=== PATIENT | male | born 1945 | race Caucasian/White ===

== ENCOUNTER 2017-03-24 06:53 | Observation (INO) | payer MEDICARE, BC ==
[~2017-03-24] VITALS: Ht 180.3 cm; Wt 124.2 kg
--- NOTE | ~2017-03-24 | OR ---
PATIENT'S NAME: IVONNE DURAN [facility] AGE: 71 Y [address] ROOM: [address] [address] LOCATION: [facility] ADMIT DATE: 03/24/2017 OR/Procedure Report DISCHARGE DATE: 03/25/2017 FAMILY PHYSICIAN: Joe Casanova MD ATTENDING PHYSICIAN: Gretel Watts SURGEON: Gretel Watts MD REPORTING ANALYST: Sharon Mackenzie RN. DATE OF PROCEDURE: 03/24/2017 PREOPERATIVE DIAGNOSIS: Lumbar spinal stenosis. POSTOPERATIVE DIAGNOSIS: Lumbar spinal stenosis. PROCEDURES PERFORMED: 1. Bilateral laminectomy with decompression of neural elements and foraminotomy and right side diskectomy at L3-4. 2. Bilateral laminectomy with decompression of neural elements, foraminotomy, and diskectomy on the left side at L4-5. ANESTHESIA: General. ANESTHESIA PROVIDER: Tim Gonzales CRNA. HISTORY: This patient is a 71-year-old gentleman who presented with back pain, difficulty standing, and weakness in his upper thighs. He was not using a walker to get around. Imaging studies showed spinal stenosis at L3-4 and L4- 5, partly as a result of a focal disc herniation on the right side at L3-4. With the severity of the patient's symptoms and the MRI findings, surgery was recommended. The above procedures, benefits, and risks were discussed with the patient. With his consent, he was brought to the operating room for surgery. PROCEDURE IN DETAIL: In the operating room, the patient was placed in a supine position. Anesthesia was induced. He was intubated. The patient was then rolled to a prone position on a Bernabe table, taking care to protect all the pressure points. The incision line was marked out in the midline of his lower back and the whole area was prepped and draped in a sterile fashion. Local anesthesia was infiltrated. The #10 blade was used to open the incision and deepen it to the fascial layer. The fascia was then opened and the tips of the spinous processes at L3, 4, 5, and S1 were identified. The paraspinous muscles were dissected off the spinous processes and laminae bilaterally at L3, 4, 5, and S1. The self-retaining retractors were adjusted. Intraoperative x-ray was obtained to verify that we were at the desired levels. Laminectomy was then carried out at L3, 4, and 5. The Laminae were drilled down bilaterally on both sides at these levels using the high-speed drill. The PATIENT'S NAME: IVONNE DURAN [facility] AGE: 71 Y [address] ROOM: [address] [address] LOCATION: [facility] ADMIT DATE: 03/24/2017 OR/Procedure Report DISCHARGE DATE: 03/25/2017 FAMILY PHYSICIAN: Joe Casanova MD ATTENDING PHYSICIAN: Gretel Watts medial facet was also drilled down. The [place] was then used to remove the laminae and spinous processes until the central canal was decompressed. The stenosis was particularly significant at L4-5. The [place] was used to separate the dura from the undersurface of the laminae and also separate the ligamentum flavum in some places. The [place] rongeur was then used to complete the central canal decompression as well as the lateral recesses. The microscope was brought in at this point, and under microscopic vision, the disk spaces were identified and foraminotomies were carried out bilaterally at L3-4 and L4-5. There was a lateral disk herniation at L3-4 which was occupying the foramen and compressing the L3 nerve roots. The disk was incised and pituitary rongeur was used to pull out disk material and decompression continued until that nerve root was completely decompressed. Some of our disc was also pressing on the right L4 nerve roots and foraminotomy was carried out for this nerve root as well. On the left side, the L4-5 disk was protruding and compressing the nerve roots. Diskectomy was also carried out on the left at L4-5. At the end of the procedure both central canal and neural foramina had been satisfactory decompressed. Hemostasis was then achieved using fibrillar and cottonoids. The edges of the laminectomy were also waxed thoroughly. When the bleeding stopped, the irrigation was used to wash out all the debris. Final hemostasis check was carried out. The retractors were then removed and the incision was closed with appropriate suture materials. Sterile dressing was applied. The patient was rolled back to a supine position. His anesthesia was reversed. He was extubated and taken to the recovery room to complete his recovery. I was present at and performed every aspect of this procedure, assisted at different stages by operating room nurses. There were no apparent intraoperative complications. Swabs, needles, and instruments were all accounted for the end of the case. Estimated blood loss was less than 500 mL and there was no reason for blood transfusion. I expect the patient to benefit from this procedure. MD JOANNA TATUM/robbl /[id number] CC: Joe Casanova MD d: 03/26/17 1650 t: 03/28/17 1246, OPERATIVE SUMMARY
[~2017-03-24 06:53] MED LIST: AMOXICILLIN500 M1 PO; CPAP INH; IMDUR30 MG PO; PLAVIX75 MG PO; PRINIVIL (ZESTRI5 MG PO
--- NOTE | 2017-03-24 16:45 | NUR ---
Significant Event: From PACU at 1500. Dressing C/D/I. CSM WNL. Void per urinal. [place] 2 tabs last at 1341. Wears C-Pap at night. Room air while awake. at bedside, assists with cares. Follow up:
--- NOTE | 2017-03-25 06:06 | NUR ---
Significant Event: Dressing is clean, dry and intact. CSM WNL. 1-2 assist with transfers. Voids without difficulty. [place] at 0209. CPAP. Family at bedside. Follow up:
[2017-03-25] MEDS ORDERED: NEURONTIN100 MG PO (09:35)
[2017-03-25] MEDS ORDERED: LIPITOR20 M1 PO (09:35)
[2017-03-25] MEDS ORDERED: CELEXA20 MG PO (09:36)
[2017-03-25] MEDS ORDERED: WELLBUTRIN XL150 M1 PO (09:36)
[2017-03-25] MEDS ORDERED: PROTONIX40 MG PO (09:37)
[2017-03-25] MEDS ORDERED: ULTRAM50 MG PO (09:37)
[2017-03-25] MEDS ORDERED: MOBIC7.5 MG PO (09:37)
[2017-03-25] MEDS ORDERED: BIOTIN1 MG PO (09:38)
[2017-03-25] MEDS ORDERED: FLONASE 50 MCG/16 GM NOSE (09:38)
[2017-03-25] MEDS ORDERED: RANEXA1000 MG PO (09:38)
[2017-03-25] MEDS ORDERED: VITAMIN D1000 UNIT PO (09:39)
[2017-03-25] MEDS ORDERED: ASCORBIC ACID500 MG PO (09:39)
--- NOTE | 2017-03-25 10:40 | NUR ---
Called to patients room by Ellie with [facility], going over the [employer] and had lots of questions. I encouraged her to call their supplemental insurance to find out exactly how they will cover services since patient is OBS. She understand the [employer] form but didn't want to sign it. Ellie and myself signed the formed. Only identified discharge need was a toilet riser which will pickup at [facility]. No other barriers to going home or at home. Live here in [place].
--- NOTE | 2017-03-25 16:48 | NUR ---
Significant Event: Ambulates with one assist, walker and gaitbelt. Dressing C/D/I. Voids per urinal. CSM WNL. [place] 5/325 for pain control. Wear C=Pap when sleeping, room air while awake. Plans to dismiss home tomorrow. Follow up:
[2017-03-25] MEDS ORDERED: NORCO 7.5-3251 EACH PO (21:17)
[2017-03-25] MEDS ORDERED: VALIUM10 MG PO (21:18)
--- NOTE | 2017-03-25 22:33 | NUR ---
At 2144 went over patient discharge information and instructions. Gave patient the [facility] information on [place] and Valium. IV was taken out at 2134. The patient and his had no further questions or concerns. Patient was dismissed per wheelchair and dismissed per private vehicle. changed the dressing prior to dismissal. Last [place] at 2011.
== END 2017-03-25 21:00 | disposition disaster alternative care site (69) ==
LOC: G3N 06:53 → GSDC 06:53 → G3N 15:00 → GSDC 15:01 → G3N 15:02
PROVIDERS: ADMIT Neurological Surgery
PROC: 0SB20ZZ Excision of Lumbar Vertebral Disc, Open Approach (ICD-10-PCS; principal; 2017-03-24)
PROC: 00NY0ZZ Release Lumbar Spinal Cord, Open Approach (ICD-10-PCS; 2017-03-24)
DX: M48.06 Spinal stenosis, lumbar region (principal); M51.26 Other intervertebral disc displacement, lumbar region; M17.10 Unilateral primary osteoarthritis, unspecified knee; N28.1 Cyst of kidney, acquired; I25.10 Atherosclerotic heart disease of native coronary artery without angina pectoris; I10 Essential (primary) hypertension; F32.9 Major depressive disorder, single episode, unspecified; M06.9 Rheumatoid arthritis, unspecified; G47.33 Obstructive sleep apnea (adult) (pediatric); Z88.1 Allergy status to other antibiotic agents; Z88.8 Allergy status to other drugs, medicaments and biological substances; Z79.899 Other long term (current) drug therapy; Z95.5 Presence of coronary angioplasty implant and graft; Z98.890 Other specified postprocedural states
CPT/HCPCS: G0378; G8978; G8979; G8980; G8987; G8988; G8989; J0690; J1100; J2001; J2405; J2765; J3010; J7030; J7120